=== PATIENT | male | born 1975 | race Caucasian/White ===

== ENCOUNTER → 2020-05-09 | Day surgery (SDC) | payer OTHER ==
[~2020-05-09] VITALS: Ht 175.3 cm; Wt 88.9 kg
[~2020-05-09] MED LIST: SODIUM CHLORIDE LOCK 10 ML ONE; fentaNYL CITRATE 100 MCG/2 ML VL ONE
[2020-05-09 11:28] LABS: Basophils # (auto) 0 10 ^3/uL (0-0.2); Basophils % (auto) 0.2 % (0.0-2.0); Eosinophils # (auto) 0 10 ^3/uL (0-0.8); Eosinophils % (auto) 0.1 % (0.0-7.0); Hematocrit 44.8 % (41.0-53.0); Hemoglobin 15.1 g/dL (13.5-17.5); Lymphocytes # (auto) 0.7 10 ^3/uL (0.4-5.4); Lymphocytes % (auto) 6.5 % (10.0-50.0); Mean Corpuscular Hemoglobin 29.7 pg (28.0-32.0); Mean Corpuscular Hgb Conc. 33.7 g/dL (32.0-36.0); Mean Corpuscular Volume 88.2 fL (80.0-100.0); Monocytes # (auto) 0.4 10 ^3/uL (0-1.3); Monocytes % (auto) 3.6 % (0.0-12.0); Neutrophils # (auto) 9.9 10 ^3/uL (1.6-8.6); Neutrophils % (auto) 89.6 % (37.0-80.0); Platelet Count (auto) 254 10^3/uL (140-450); Red Blood Cells 5.08 10^6/uL (4.5-5.90); Red Cell Distribution Width 13.9 % (11.8-14.3)
[2020-05-09] MEDS: diphenhdrAMINE HCL 50 MG/1 ML VL ONE ×2 (11:45→11:51)
[2020-05-09] MEDS: MIDAZOLAM HCL 5 MG/ML-1ML VIAL ONE ×2 (11:45→11:48)
[2020-05-09 12:16] LABS: INR 1.06 (0.9-1.15); Partial Thromboplastin Time 32.3 sec (23.0-31.2)
[2020-05-09 12:40] VITALS: BP 133/88
== END | disposition home or self-care (01) ==
LOC: GI 10:00
PROVIDERS: ATTEND Internal Medicine Gastroenterology
DX: K62.5 Hemorrhage of anus and rectum (principal); K63.89 Other specified diseases of intestine; K64.8 Other hemorrhoids; Z98.890 Other specified postprocedural states; Z79.899 Other long term (current) drug therapy
CPT/HCPCS: 36415; 45380; 85025; 85610; 85730; 88305; J1200; J2250; J7030; 99152